=== PATIENT | female | born 2000 | race Caucasian/White ===

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

== ENCOUNTER 2018-05-12 10:53 | Emergency (ER) | payer BC ==
[2018-05-12 11:04] VITALS: BP 119/75
--- NOTE | 2018-05-12 11:38 | EDPHY ---
General Time Seen by Provider: 05/12/18 11:36 Narrative: CHIEF COMPLAINT: Toe infection HISTORY OF PRESENT ILLNESS: Patient presents with complaints of left toe infection. Patient reports an injury to the left toenail last week where she bent the toenail back. She was seen in urgent care where they "poked a hole in it and drained it," as she describes the likely trephination. She says that she was recently contacted by them as they obtained swab from the toe that will reportedly positive for Staph and strep. She says she was sent here to have the toenail removed. She has no complaints of pain. No redness or warmth. No fever. No difficulty using the foot. No systemic complaints. No other associated complaints or modifying factors. ESTABLISHED ORTHOPEDIST: None REVIEW OF SYSTEMS: Ten systems reviewed and are negative unless otherwise noted in the HPI PAST MEDICAL HISTORY: Uncomplicated PAST SURGICAL HISTORY: No surgical history SOCIAL HISTORY: Nonsmoker. [employer] student. Originally from [facility] FAMILY HISTORY: Noncontributory EXAMINATION: General Appearance: Alert, no distress Cardiovascular: DP and PT pulses are symmetric with good signs of perfusion to both feet. Neurological: A&O, light sensory symmetric, great strength symmetric Skin: Warm and dry, no rash. There is no cellulitis of the foot. No lymphangitis of the foot. No palpable abscess. No paronychia or felon Extremities: Nontender, no pedal edema. No abnormality of the left great toe. There is evidence of recent trephination to left great toenail. Psychiatric: Mood and affect normal DIFFERENTIAL DIAGNOSES: Including but not limited to subungual hematoma, nail injury, hematoma, felon, paronychia, cellulitis MDM: 11:20 a.m. Left great toe injury earlier this week with subungual hematoma that has been trephinated recently. There is no signs of infection. Specifically no cellulitis, tenosynovitis, abscess, felon, ingrown toenail, or paronychia. Recommend follow up with combiner or primary care physician if she wishes to pursue toe no removal. No indication for antibiotics at time. SUPERVISION: This patient was independently evaluated without direct involvement of or examination by the attending physician. - History Smoking Status: Never smoked - Objective Vital Signs: Initial Vital Signs Temperature (C) 98.6 F 05/12/18 11:02 Heart Rate 97 05/12/18 11:02 Respiratory Rate 16 05/12/18 11:02 Blood Pressure 119/75 05/12/18 11:02 O2 Sat (%) 97 05/12/18 11:02 O2 Delivery Mode Room Air Allergies/Adverse Reactions: No Known Allergies Allergy (Verified 05/12/18 11:01) Home Medications: Medication Instructions Recorded Control Pills 07/15/16 AMOXICILLIN 05/12/18 Departure - Departure Disposition: Home, Routine, Self-Care Clinical Impression: Subungual hematoma of great toe of left foot Qualifiers: Encounter type: subsequent encounter Qualified Code(s): S90.212D - Contusion of left great toe with damage to nail, subsequent encounter Condition: Good Instructions: Subungual Hematoma (ED) Additional Instructions: 1. Contact the combiner as provided with orthopedist as provided for further care 2. Per return here for any redness, warmth, fever, drainage or signs of infection as discussed Referrals: Ta Andrews MD [Medical Doctor] - As per Instructions Lavell Lee DPM [Doctor of Podiatric Medicine] - As per Instructions
== END 2018-05-12 11:44 | disposition home or self-care (01) ==
DX: S90.212A Contusion of left great toe with damage to nail, initial encounter (principal); X50.0XXD Overexertion from strenuous movement or load, subsequent encounter; Y99.8 Other external cause status